=== PATIENT | female | born 1990 | race Caucasian/White ===

== ENCOUNTER → 2017-05-13 | Outpatient (CLI) | payer OTHER ==
[~2017-05-13] MED LIST: PRENTAB26 PO
[2017-05-13 16:50] LABS: URINE APPEARANCE CLEAR (CLEAR); URINE BILIRUBIN NEG (NEG); URINE COLOR YELLOW; URINE NITRITE NEG (NEG); URINE SPECIFIC GRAVITY 1.011 (1.000-1.030); UROBILINOGEN NEG (NEG)
[2017-05-13 17:00] LABS: MANUAL MICROSCOPIC REQUIRED? NO; REVIEW REQ? NO
== END | disposition home or self-care (01) ==
LOC: C.LABSPEC 16:31
PROVIDERS: ATTEND Obstetrics & Gynecology
DX: Z33.1 Pregnant state, incidental (principal)

== ENCOUNTER → 2017-06-20 | Outpatient (CLI) | payer OTHER | END | disposition home or self-care (01) | LOC: C.LABSPEC 14:13 | PROVIDERS: ATTEND Obstetrics & Gynecology | DX: Z34.83 Encounter for supervision of other normal pregnancy, third trimester (principal) ==

== ENCOUNTER 2017-07-17 17:36 | Inpatient (IN) | payer OTHER ==
[~2017-07-17] VITALS: Ht 157.5 cm; Wt 55.5 kg
[2017-07-17] MEDS ORDERED: LACTATED RINGER'S 1000ML 1,000 ML IV SCH (17:51)
[2017-07-17] MEDS ORDERED: LACTATED RINGER'S 1000ML 1,000 ML IV PRN (17:51)
[2017-07-17] MEDS ORDERED: PRENTAB26 PO (18:14)
[2017-07-17 18:16] VITALS: Ht 157.5 cm; Wt 55.5 kg
[2017-07-17 18:39] LABS: MEAN CELL VOLUME 92.5 fL (80-100); MEAN CORPUSCULAR HEMOGLOBIN 32.5 pg (25-34); MEAN CORPUSCULAR HGB CONC 35.1 g/dl (32-36); MEAN PLATELET VOLUME 10.4 fL (7.4-10.4); PLATELET COUNT 217 K/uL (130-400)
[2017-07-17] MEDS ORDERED: ACETAMINOPHEN 325 MG TAB PO PRN (19:45)
[2017-07-17] MEDS ORDERED: ACETAMINOPHEN/CODEINE 300/30MG TAB PO PRN (19:45)
[2017-07-17] MEDS ORDERED: LANOLIN OINT EXT PRN ×2 (19:45)
[2017-07-17] MEDS ORDERED: OXYCODONE/ACETAMINOPHEN 5-325 TAB PO PRN (19:45)
[2017-07-17] MEDS ORDERED: SUPERCREAM 0.870 % 15GM JAR EXT PRN (19:45)
[2017-07-17] MEDS ORDERED: HYDROCORTISONE ACETATE 25 MG SUPP PR PRN (19:45)
[2017-07-17] MEDS ORDERED: BENZOCAINE 20% AER SPR 82.5 GM CAN EXT PRN (19:45)
[2017-07-17] MEDS ORDERED: OXYTOCIN 30 UNITS/500ML NSS IV PRN (19:45)
[2017-07-17] MEDS ORDERED: OXYTOCIN INJ 10 UNITS/ML VIAL IM ONE (20:00)
[2017-07-17] MEDS: DOCUSATE SODIUM 100 MG CAP PO SCH (20:00)
--- NOTE | 2017-07-17 20:39 | DELIVERY SUMMARY ---
DATE OF OPERATION: 07/17/2017 VAGINAL DELIVERY NOTE Melyssa presented to the labor and delivery. This was her third baby, group B strep negative. She is at term, presented with 4 cm and active labor. She declined epidural, progressed to 6 cm. I offered her ARM and she agreed. Thin meconium. She rapidly progressed to fully dilated and then delivered in occiput anterior position. Mouth and the nares were suctioned. Baby was delivered with gentle traction. No nuchal cord. Live vigorous . Cord clamped and cut, cord gasses obtained, cord blood obtained. Placenta removed with gentle traction. IM Pitocin was given and there was no tearing noted. Uterus was massaged. Uterus tone was firm. Estimated blood loss 150 mL. Sponge and instrument counts correct. I attest to the content of the Intraoperative Record and any orders documented therein. Any exception s are noted below.
[2017-07-17] MEDS: IBUPROFEN 600 MG TAB PO PRN (20:43)
[2017-07-17 22:20] VITALS: BP 111/64; PULSE 87; TEMP 36.8
[2017-07-17 23:23] VITALS: BP 106/63; PULSE 68; TEMP 37; O2SAT 97
[2017-07-18] VITALS (7 sets, daily range): BP systolic 11–113; BP diastolic 67–73; PULSE 58–80; TEMP 36.2–36.9; O2SAT 97–98
[2017-07-18] MEDS: IBUPROFEN 600 MG TAB PO PRN (03:52)
[2017-07-18] MEDS: ACETAMINOPHEN/CODEINE 300/30MG TAB PO PRN ×2 (05:23→09:33)
[2017-07-18 06:05] LABS: HEMATOCRIT 33.2 % (37-47)
--- NOTE | 2017-07-18 07:40 | Progress Note ---
Subjective Jul 18, 2017. Subjective conversation w/ patient, physical exam, chart review, lab review Ambulation: ambulating normally Voiding: no voiding problems Passing Gas: Yes Diet Tolerance: Regular Diet Lochia: Moderate Feeding Type: Breast Feeding Pain: controlled Review of Systems Respiratory: No shortness of breath Cardiac: No chest pain Abdomen: No nausea, No vomiting Female : No dysuria Objective Vital Signs Date Time Temp Pulse Resp B/P (MAP) Pulse Ox O2 Delivery O2 Flow Rate FiO2 07/18/17 04:10 36.5 58 16 108/73 (85) 98 Room Air 07/17/17 23:28 Room Air 07/17/17 23:23 37.0 68 16 106/63 (77) 97 Room Air 07/17/17 22:20 36.8 87 18 111/64 (80) Room Air Physical Exam General Appearance: WELL-APPEARING, WD/WN, NO APPARENT DISTRESS Respiratory/Chest: lungs clear Cardiovascular: regular rate, rhythm Abdomen: normal bowel sounds, soft Fundus: Firm, Non-Tender, Relation to Umbilicus (at level of U) Extremities: no calf tenderness Laboratory Results Last 24 Hours Test 07/17/17 18:20 07/18/17 05:51 White Blood Count 11.80 K/uL Red Blood Count 4.00 M/uL Hemoglobin 13.0 g/dL 11.4 g/dL Hematocrit 37.0 % 33.2 % Mean Corpuscular Volume 92.5 fL Mean Corpuscular Hemoglobin 32.5 pg Mean Corpuscular Hemoglobin Concent 35.1 g/dl RDW Standard Deviation 43.8 fL RDW Coefficient of Variation 12.9 % Platelet Count 217 K/uL Mean Platelet Volume 10.4 fL Assessment and Plan Post- Day#: 1 Continue Routine Care: - Vital Signs reviewed and WNL. - Hemoglobin 11.4 - Blood Type: B+, GBS-, Rubella Immune. - Pt is doing well clinically. - Encourage Ambulation, Monitor and Control pain with Motrin PRN, Resume regular diet, Monitor Lochia - Encourage Breast Feeding. - Pt counselled on discharge instructions ABIODUN OLIVER PGY1 RESIDENT Resident Physician Supervision Note: I interviewed and examined the patient. Discussed with Dr. Oliver and agree with findings and plan as documented in the note. Any exceptions or clarifications are listed here: [None] Documented By: Benjy Bassett Resident Tracking Resident Involvement: Resident Care Provided Care Provided: OB Delivery
--- NOTE | 2017-07-18 07:47 | Discharge Instructions ---
Discharge Instructions Date of Service Jul 18, 2017. Admission Reason for Admission: Normal Labor Discharge Discharge Diagnosis / Problem: DELIVERY VAGINAL Discharge Goals Goal(s): Routine recovery after delivery Medications Continue Dispensed Medications: supercream, dermaplast, tucks, lansinoh Activity Recommendations Activity Limitations: per Instructions/Follow-up section . Instructions / Follow-Up Instructions / Follow-Up ACTIVITY RECOMMENDATIONS: * Gradual return to full activity over the next 2-3 weeks. * No lifting - nothing heavier than baby over the next 2-3 weeks. * Do not engage in vigorous exercise, sexual activity or sports until cleared by your physician. * Do not drive or operate any motorized equipment until cleared by your physician. * You may shower/bathe daily. MEDICATIONS: For discomfort or pain, you may use Acetaminophen (Tylenol), Ibuprofen (Advil), or Naproxen (Aleve) following the package directions. For constipation you may use Colace following the package directions. BREAST CARE: If you are not breast feeding: * Wear a supportive bra 24 hours a day for one to two weeks. * Avoid stimulating your breasts and nipples as much as possible during the first few weeks after delivery. * When taking a shower, have the warm water hit your back, not breasts. * When your breasts feel full, apply ice packs. Usually three to four times a day helps ease the discomfort. * Take a mild pain medication (Tylenol / Motrin) when you are uncomfortable. If breast feeding: * Use breast milk to lubricate nipples. Lansinoh cream may be used for sore nipples. You do not need to remove cream prior to breast feeding. If using a different brand of cream, check the label for directions regarding removal of cream prior to nursing. * Wear a supportive bra. * If having problems with breasts or breast feeding, call a sustainable design consultant or your health care provider. EPISIOTOMY CARE: After delivery, if you have an episiotomy (stitches), the following steps will ease discomfort and aid healing. * For the first 24 hours after delivery, place ice packs next to your episiotomy to help reduce swelling. * After the first 24 hour-period, sitz baths, either portable or in the tub, are suggested. A shower with a shower arm sprayed over the episiotomy may be comforting. * Yvonne care should be done after each voiding and bowel movement. Squirt warm water from a plastic bottle over the perineum (region of the body between the anus and urinary opening) and pat dry. * Use Dermoplast to ease discomfort. Shake container. [place] directly over the episiotomy. Place a Tucks on a clean sanitary pad next to your episiotomy. SPECIAL CARE INSTRUCTIONS: When you are discharged from the hospital, it is important for you to follow the instructions listed below: * During the first week at home, you should be able to care for yourself and your baby. In addition, the usual light household activities are encouraged. * Limit your activities to the way you feel. Do not try to clean the house or move furniture. Be sensible. * If you actively engage in sports and have done so up until the time of your delivery, you may resume these activities as soon as you feel able. This may take up to one month or even longer. Use good judgment. * Continue to take your vitamins for at least six weeks after the of your baby. * Your diet need not be limited unless you were on a special diet before your delivery. Breast-feeding mothers need around 2500 calories per day and at least 64-80 ounces of fluid per day (8 to 10 glasses). * You should eat foods from the four major food groups. Crash diets or fad diets are to be avoided. Eating lean meats, fresh fruits and vegetables, low-fat dairy products, high fiber foods and a regular exercise program, will help you get back to your pre- weight without putting your health at risk. * Constipation is sometimes a problem after delivery. Take a mild laxative as needed. If breast feeding, Milk of Magnesia is acceptable to use. You may use a suppository or Fleets enema if no episiotomy. * A daily shower or tub bath is suggested. Be sure to thoroughly and gently dry the perineum. * A bloody vaginal discharge will usually continue until around four weeks post . A small amount of bleeding may continue for as long as six weeks. Vaginal discharge changes from the bright red bleeding after delivery to pink then brownish and finally yellowish-pink before becoming white and disappearing. * Bleeding may increase with activity. Your first period may come in 4-8 weeks. If you are breast feeding, your period may be delayed even longer. * [place] (sex) can begin whenever both you and your partner feel comfortable and do not have any form of genital infection. It is recommended that you wait at least six weeks for internal and external healing to occur. If you have questions, please talk to your health care practitioner. A condom should be used to prevent infection and . * Foreplay, gentle intercourse and lubrication is very important the first several times to prevent pain. A water-based lubricant such as K-Y jelly or Astroglide may be used. * If you have RH negative blood and your baby is RH positive, you will receive RHOGAM by injection prior to discharge. The nurse will give you a card to keep with you that has the date and place that you received RHOGAM after delivery. * During your care, you had a Rubella screen done to check for the presence of rubella antibodies in your blood. If your test was negative, you will receive a Rubella vaccine prior to discharge. This vaccine may cause a fever, soreness at the injection site and flu-like symptoms. If these symptoms persist, notify your health care practitioner. is not advised for one month after a Rubella vaccine. * Verbalizes understanding of car seat law as reviewed with patient nursing. * Car Seat hand-out given and reviewed with patient by nursing. * Shaken baby information reviewed with patient by nursing. Call you doctor if: * Heavy bleeding (saturating several pads an hour) or passing clots the size of your fist. * A fever >101 degrees F (38.3 degrees C) on two occasions four hours apart and /or chills. * Unusual pain in the pelvic or vaginal areas. * "Baby Blues" lasting longer than two weeks. If you have any questions or concerns, call your health care practitioner at . FOLLOW UP VISIT: * Please call the office at to schedule a 6 week examination. It is important you keep this appointment. It is important for you to make arrangements for either yearly or twice yearly check-ups thereafter. Current Hospital Diet Patient's current hospital diet: Regular OB Diet Discharge Diet Recommended Diet: Regular Diet Pending Studies Studies pending at discharge: no Medical Emergencies . Who to Call and When: Medical Emergencies: If at any time you feel your situation is an emergency, please call 911 immediately. . Non-Emergent Contact Non-Emergency issues call your: Primary Care Provider . . "Provider Documentation" section prepared by Morena Oliver. . VTE Core Measure Inpt VTE Proph given/why not?: Treatment not indicated
[2017-07-18] MEDS ORDERED: DIPHTHERIA/TETANUS/PERTUSSIS 0.5 ML SYR/VIAL IM. ONE (08:00)
[2017-07-18] MEDS ORDERED: PRENATAL VITAMIN TAB PO SCH (08:00)
[2017-07-18] MEDS: DOCUSATE SODIUM 100 MG CAP PO SCH (08:44)
[2017-07-18] MEDS ORDERED: ONDANSETRON INJ 2 MG/ML 2 ML VIAL IV PRN (13:15)
[2017-07-18] MEDS ORDERED: ONDANSETRON 4 MG TAB PO PRN (13:15)
[2017-07-18] MEDS ORDERED: ONDANSETRON INJ 2 MG/ML 2 ML VIAL ONE (13:22)
[2017-07-18] MEDS ORDERED: BISACODYL 5 MG TABEC PO SCH (20:00)
[2017-07-19] MEDS ORDERED: BISACODYL 10 MG SUPP PR PRN (07:00)
== END 2017-07-18 20:10 | disposition home or self-care (01) | DRG 775 ==
LOC: C.LD 17:36 → C.OPB 17:36 → C.LD 17:52 → C.MS4N 22:41
PROVIDERS: ADMIT Obstetrics & Gynecology; ATTEND Obstetrics & Gynecology
PROC: 10E0XZZ Delivery of Products of Conception, External Approach (ICD-10-PCS; principal; 2017-07-17)
DX: O80 Encounter for full-term uncomplicated delivery (principal); Z37.0 Single live birth; Z3A.40 40 weeks gestation of pregnancy